=== PATIENT | male | born 1990 | race Caucasian/White ===

== ENCOUNTER 2021-11-20 12:58 | Observation (INO) ==
[2021-11-20 13:35] LABS: Basophils # (auto) 0.02 K/uL (0-0.2); Basophils % (auto) 0.3 %; Eosinophils # (auto) 0.08 K/uL (0-0.50); Eosinophils % (auto) 1.3 %; Hematocrit (blood only) 44.7 % (40.1-51.0); Hemoglobin 16.2 g/dl (14.0-18.0); Immature Granulocytes # (auto) 0.02 K/uL (0.00-0.02); Immature Granulocytes % (auto) 0.3 %; Lymphocytes # (auto) 1.84 K/uL (1.2-3.4); Lymphocytes % (auto) 30.7 %; Mean Corpuscular Hemoglobin 30.1 pg (25.0-34.0); Mean Corpuscular Hgb Conc 36.2 g/dL (32.0-36.0); Mean Corpuscular Volume 82.9 fL (80.0-100.0); Mean Platelet Volume 10.5 fL (9.4-12.4); Monocytes # (auto) 0.37 K/uL (0.24-0.82); Monocytes % (auto) 6.2 %; Neutrophils # (auto) 3.66 K/uL (1.4-6.5); Neutrophils % (auto) 61.2 %; Platelet Count 283 K/uL (130-400); RDW Coefficient of Variation 11.8 % (11.5-14.5); RDW Standard Deviation 35.6 fL (36.4-46.3); Red Blood Count 5.39 M/uL (4.63-6.08); White Blood Count 5.99 K/ul (4.8-10.8)
[2021-11-20 13:56] LABS: Albumin Globulin Ratio 1.8 (0.9-2); Albumin Level 4.6 gm/dl (3.4-5.0); BUN Creatinine Ratio 8.8 (10-20); Bilirubin,Total 0.7 mg/dl (0.2-1.0); Calcium 9.6 mg/dl (8.5-10.1); Creatinine Clr Calc Pharmacy 101.3 ml/min; Est GFR (African American) 129.7 ml/min; Est GFR (Non-African American) 111.9 ml/min; Globulin 2.5 gm/dl (2.5-4.0); Potassium 3.4 mmol/L (3.5-5.1); Total Protein 7.1 gm/dl (6.0-8.3)
[2021-11-20] MEDS ORDERED: SODIUM CHLORIDE 0.9% 1000ML 1,000 ML IV ONE (14:27)
--- NOTE | 2021-11-20 14:31 | Emergency Department Note ---
Impression & Plan Bowel disease, inflammatory, Small bowel obstruction, Abdominal pain ED Provider Note NAME: NEFTALI MARRERO AGE: 31 SEX: M : 1990 ARRIVES VIA: Walk-In INFORMANT: Patient ED PROVIDER(S): Uriel Aguilar DO CHIEF COMPLAINT: abdominal pain HPI: Patient is a 31-year-old male who presents the ER for abdominal pain. Patient notes that the pain is periumbilical and is about a 3-4 out of 10. No nausea or vomiting. Last bowel movement was around 1130. Pain started around 10 AM this morning. Denies any dysuria, urgency, or frequency. No other exacerbating or remitting factors. No fevers. No trauma. No previous abdominal surgeries. Pain feels slightly better when he lays in a ball on his left side. Patient does have a family history of inflammatory bowel disease but notes that he has never been diagnosed with this before. ROS: See above HPI for pertinent positives & negatives. A total of 10 systems reviewed and were otherwise negative. PAST MEDICAL HISTORY:See Below PAST SURGICAL HISTORY:See Below FAMILY HISTORY:See Below SOCIAL HISTORY:See Below HOME MEDICATIONS:See Below ALLERGIES:See Below VITALS:See Below PHYSICAL EXAMINATION: GENERAL: Sitting up in bed, alert, well appearing, well nourished, no distress, non-toxic EYE EXAM: normal conjunctiva. NECK: supple, no nuchal rigidity, no adenopathy, non-tender LUNGS: Clear to auscultation. Normal chest wall mechanics HEART: no murmurs, S1 normal and S2 normal ABDOMEN: abdomen soft, non-tender, normo-active bowel sounds, no masses, no rebound or guarding. UPPER EXTREMITIES: upper extremities are grossly normal. LOWER EXTREMITIES: No pitting edema. NEURO EXAM: Normal sensorium, cranial nerves II-XII grossly intact, normal speech, no gross weakness of arms, no gross weakness of legs. MEDICAL DECISION MAKING: Patient is a 31-year-old male with a family history of inflammatory bowel disease that presents the ER for abdominal pain. IV was established blood work was obtained. Labs showed no significant leukocytosis or anemia. BMP with mild hypokalemia 3.4. LFTs bilirubin and lipase was remarkable for a lipase of 130. UA was unremarkable. CT abdomen pelvis showed likely inflammatory bowel disease with strictures and a questionable small bowel obstruction. He was given IV fluids. Patient was also given IV Toradol. He was discussed with Dr. 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 Triage Nursing notes reviewed. Limited review of prior medical records performed Vital Signs: reviewed and remarkable for no significant abnormalities Differential diagnosis: Differential diagnoses includes but is not limited to gastritis, peptic ulcer disease, GERD, gallbladder disease, pancreatitis, small bowel obstruction, acute coronary syndrome, pericarditis, ischemic bowel, irritable bowel disease, irritable bowel syndrome, appendicitis, diverticulitis, malignancy, hernia, urinary tract infection, torsion, perforation, trauma, infectious. ER treatment provided: See below Diagnostics interpreted by me: ECG: none Cardiac Monitoring: An order was placed for continuous cardiac monitoring. The monitor shows a rate of 70 with sinus rhythm. Laboratory studies: As stated above and show below. Imaging studies: CT abdomen pelvis as described above Consultation(s): Discussed with Dr. Luca Cheek for further evaluation Procedures: none Critical Care: None Past Med/Surg History Social History Smoking Status: Never smoker Feels Safe at Home: Yes Allergies Allergies Allergy/AdvReac Type Severity Reaction Status Date / Time No Known Allergies Allergy Unverified 10/12/11 22:04 Results & Data (ED) Vital Signs Vital Signs - 24 hr 11/20/21 13:01 11/20/21 14:48 Temperature 36.7 C Temperature Source Temporal Artery Scan Pulse Rate 87 Pulse Rate [Left Finger] 67 Pulse Rhythm [Left Finger] Regular Pulse Strength [Left Finger] Normal Respiratory Rate 18 20 Respiratory Effort / Characteristics Non-Labored Non-Labored Spontaneous Respiratory Depth Normal Normal Respiratory Pattern Regular Regular Blood Pressure 132/88 Blood Pressure [Right Arm] 132/79 Blood Pressure Mean 102 Blood Pressure Mean [Right Arm] 96 Blood Pressure Position [Right Arm] Sitting Pulse Oximetry 100 97 Oxygen Delivery Method Room Air Room Air Sepsis Recent Fever Within 48 Hours No Sepsis New/Unexplained Change in Mental Status N/A Sepsis Action Taken by Nursing No Action Required Laboratory Data Result diagrams: 11/20/21 13:12 11/20/21 13:12 Lab Results 11/20/21 11/20/21 11/20/21 Range/Units 13:12 13:12 14:35 WBC 5.99 (4.8-10.8) K/ul RBC 5.39 (4.63-6.08) M/uL Hgb 16.2 (14.0-18.0) g/dl Hct 44.7 (40.1-51.0) % MCV 82.9 (80.0-100.0) fL MCH 30.1 (25.0-34.0) pg MCHC 36.2 H (32.0-36.0) g/dL RDW Std Deviation 35.6 L (36.4-46.3) fL RDW Coeff of Earnest 11.8 (11.5-14.5) % Plt Count 283 (130-400) K/uL MPV 10.5 (9.4-12.4) fL Immature Gran % (Auto) 0.3 % Neut % (Auto) 61.2 % Lymph % (Auto) 30.7 % [place] % (Auto) 6.2 % Eos % (Auto) 1.3 % Baso % (Auto) 0.3 % Neut # (Auto) 3.66 (1.4-6.5) K/uL Lymph # (Auto) 1.84 (1.2-3.4) K/uL [place] # (Auto) 0.37 (0.24-0.82) K/uL Eos # (Auto) 0.08 (0-0.50) K/uL Baso # (Auto) 0.02 (0-0.2) K/uL Immature Gran # (Auto) 0.02 (0.00-0.02) K/uL Sodium 139 (136-145) mmol/L Potassium 3.4 L (3.5-5.1) mmol/L Chloride 103 (98-107) mmol/L Carbon Dioxide 27 (21-32) mmol/L Anion Gap 9 (3-11) BUN 8 (6-23) mg/dl Creatinine 0.91 (0.6-1.4) mg/dl Est Cr Clr Drug Dosing 101.3 ml/min Est GFR ( Amer) 129.7 ml/min Est GFR (Non-Af Amer) 111.9 ml/min BUN/Creatinine Ratio 8.8 L (10-20) Glucose 96 (70-99(Fasting)) mg/dl Calcium 9.6 (8.5-10.1) mg/dl Total Bilirubin 0.7 (0.2-1.0) mg/dl AST 17 (13-39) U/L ALT 21 (7-52) U/L Alkaline Phosphatase 48 (34-104) U/L Total Protein 7.1 (6.0-8.3) gm/dl Albumin 4.6 (3.4-5.0) gm/dl Globulin 2.5 (2.5-4.0) gm/dl Albumin/Globulin Ratio 1.8 (0.9-2) Lipase 132 H (11-82) U/L Urine Color Yellow Urine Appearance Clear (Clear) Urine pH 7.5 (4.5-7.5) Ur Specific [place] 1.017 (1.000-1.030) Urine Protein Negative (Negative) Urine Glucose (UA) Negative (Negative) Urine Ketones 1+ H (Negative) Urine Blood Negative (Negative) Urine Nitrite Negative (Negative) Urine Bilirubin Negative (Negative) Urine Urobilinogen Negative (Negative) Ur Leukocyte Esterase Negative (Negative) Administered Medications Discontinued Medications Sodium Chloride (Nss 1000ml) 1,000 mls @ 999 mls/hr IV .Q1H1M ONE Stop: 11/20/21 15:27 Last Infusion: 11/20/21 15:34 Dose: 0 mls/hr Documented By: Admin: 11/20/21 14:32 Dose: 999 mls/hr Documented By: LULA Ioversol (Ioversol 350 Mg 100ml Prefilled Syringe) 91 ml IV ONCE ONE Stop: 11/20/21 15:05 Last Admin: 11/20/21 15:05 Dose: 91 ml Documented By: CATHERINE Ketorolac Tromethamine (Ketorolac Tromethamine 15 Mg/Ml Vial) 15 mg IV NOW ONE Stop: 11/20/21 14:39 Last Admin: 11/20/21 14:47 Dose: 15 mg Documented By: BAILEE Imaging Data Radiologist's Impression: Abdomen/Pelvis CT 11/20/21 14:[address] WITH IV CONTRAST CT DOSE: 261.19 mGy.cm HISTORY: Generalized abdominal pain. TECHNIQUE: Multiaxial CT images of the abdomen and pelvis were performed following the use of intravenous contrast. A dose lowering technique was utilized adhering to the principles of ALARA. COMPARISON STUDY: None. FINDINGS: The lung bases are clear. No pneumoperitoneum. No pneumatosis. No fractures within the visualized osseous structures. The liver, spleen, adrenal glands, pancreas, and kidneys are unremarkable. No retroperitoneal lymphadenopathy. Normal caliber abdominal aorta. The main portal vein is patent. No pelvic free fluid. The bladder is not well-distended but appears unremarkable. The visualized appendix is unremarkable. The tip is partially obscured. Mild thickening at the distal 15 cm of the terminal ileum with areas of mild dilatation measuring up to 2.9 cm and 2 separate strictures. The focal narrowing/stricture at the distal terminal ileum near the ileocecal valve is best seen on image 226. Therefore, this could represent a partial distal small bowel obstruction secondary to a nonspecific terminal ileitis. This may repr esent an inflammatory bowel disease or infectious process. Questionable thickening at the body of stomach may be due to underdistention. IMPRESSION: 1. Mild thickening at the terminal ileum with areas of both mild dilatation and strictures as described above. Therefore, this could represent a partial distal small bowel obstruction secondary to a nonspecific terminal ileitis. This may represent an inflammatory bowel disease or infectious process. 2. Questionable thickening at the body of stomach may be due to underdistention. 3. The visualized appendix is unremarkable. ACT 112: Negative or not required by law. Electronically signed by: Gordy Roberson M.D. 11/20/2021 3:43 PM Discharge Plan Visit Data Chief Complaint: Abdominal Pain Stated Complaint: SHARP PAIN IN ABDOMINAL ED Provider: Uriel Aguilar Discharge Problem: Bowel disease, inflammatory, Small bowel obstruction, Abdominal pain Forms Stand Alone Forms: [facility] Referrals [facility]: [facility] [Non-Staff] -
[2021-11-20] MEDS ORDERED: KETOROLAC TROMETHAMINE 15 MG/ML VIAL IV ONE (14:38)
[2021-11-20 14:50] LABS: Appearance Urine Clear (Clear); Bilirubin Urine Negative (Negative); Blood Urine Negative (Negative); Color Urine Yellow; Glucose Urine UA Negative (Negative); Ketones Urine 1+ (Negative); Leukocyte Esterase Urine Negative (Negative); Nitrite Urine Negative (Negative); Protein Urine Negative (Negative); Specific Gravity Urine 1.017 (1.000-1.030); Urobilinogen Urine Negative (Negative); pH Urine 7.5 (4.5-7.5)
[2021-11-20] MEDS ORDERED: IOVERSOL 350 MG 100mL Prefilled Syringe IV ONE (15:04)
--- NOTE | 2021-11-20 15:45 | CT Scan Report ---
ABDOMEN AND PELVIS CT WITH IV CONTRAST CT DOSE: 261.19 mGy.cm HISTORY: Generalized abdominal pain. TECHNIQUE: Multiaxial CT images of the abdomen and pelvis were performed following the use of intrave nous contrast. A dose lowering technique was utilized adhering to the principles of ALARA. COMPARISON STUDY: None. FINDINGS: The lung bases are clear. No pneumoperitoneum. No pneumatosis. No fractures within the visu alized osseous structures. The liver, spleen, adrenal glands, pancreas, and kidneys are unremarkable. No retroperitoneal lymphadenopathy. Normal caliber abdominal aorta. The main portal vein is patent. No pelvic free fluid. The bladder is not well-distended but appears unremarkable. The visualized appe ndix is unremarkable. The tip is partially obscured. Mild thickening at the distal 15 cm of the termi nal ileum with areas of mild dilatation measuring up to 2.9 cm and 2 separate strictures. The focal n arrowing/stricture at the distal terminal ileum near the ileocecal valve is best seen on image 226. T herefore, this could represent a partial distal small bowel obstruction secondary to a nonspecific te rminal ileitis. This may represent an inflammatory bowel disease or infectious process. Questionable thickening at the body of stomach may be due to underdistention. IMPRESSION: 1. Mild thickening at the terminal ileum with areas of both mild dilatation and strictures as descri bed above. Therefore, this could represent a partial distal small bowel obstruction secondary to a no nspecific terminal ileitis. This may represent an inflammatory bowel disease or infectious process. 2. Questionable thickening at the body of stomach may be due to underdistention. 3. The visualized appendix is unremarkable. ACT 112: Negative or not required by law. Electronically signed by: Gordy Roberson M.D. 11/20/2021 3:43 PM
--- NOTE | 2021-11-20 16:50 | History & Physical Report ---
Date of Service November 20, 2021 Assessment & Plan (1) Bowel disease, inflammatory: Plan: - Patient with acute onset of 3/4-10 periumbilical pain this morning worsened with food, now resolved. - CT A/P: Mild thickening at the terminal ileum with areas of both mild dil atation and strictures as described above. Therefore, this could represent a partial distal small bowel obstruction secondary to a nonspecific terminal ileitis. This may represent an inflammatory bowel disease or infectious process. - Will consult GI and consider starting steroids this evening per their recommendations. Otherwise, will have patient n.p.o., on mIVF, pain control with IV Toradol or IV morphine in severity. - Lipase minimally elevated at 132, will repeat on AM labs. (2) Small bowel obstruction: Plan: - CT of the abdomen and pelvis shows inflammation of the terminal ileum with mild dilatation and strictures which may possibly represent distal SBO, however patient has had 2 normal BMs today, without nausea or vomiting. - Can get a KUB tomorrow and consider general surgery consult at that time for new findings/progression or if patient's condition worsens - For now we will keep patient n.p.o. Plan - Admit to [facility]. - SCDs for VTE ppx. - Full Code. History of Present Illness Primary Care Provider: NO PCP Logan Haeys is a previous healthy 31-year-old male is presenting today as a previously healthy 31-year-old male who presented thia afternoon with abdominal pain. 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 He ate a spicy meal from [employer] and notes this significantly worsened his pain. Pain is in the central/upper abdomen and does not radiate anywhere, is worse with movement and better with lying still. Has not been nauseous or vomiting with the pain, and has had 2 bowel movements which were normal for him, nonbloody and nonpainful. He has not had any fever or chills. No one else at home is feeling sick. He denies tobacco, alcohol, or drug use. No new medications or supplements been started and he is not taking any medications. No recent trauma to the abdomen and no history of abdominal surgeries. He drinks socially, maybe 1 or 2 times a month but has not had any alcohol in the past week or so. He denies a personal history of GI issues, but does have a brother who was diagnosed with colitis in the past 10 years and he believes his father has had pancreatitis, but denies any other family history of GI disorders or diseases. Since receiving medication in our ED, his pain has resolved. Upon presentation his VS are wnl and stable. Labs largely unremarkable, his potassium is just slightly low at 3.4, lipase is 132. CT of the abdomen/pelvis shows mild thickening of the terminal ileum with areas of both dilatation st rictures possibly representing partial distal SBO secondary to nonspecific terminal ileitis or possible IBD. Allergies Allergy/AdvReac Type Severity Reaction Status Date / Time No Known Allergies Allergy Unverified 11/20/21 17:26 Home Medications Medication Instructions Recorded Confirmed Type No Known Home Medications 11/20/21 11/20/21 History Past Med/Surg History Medical History (Updated 11/20/21 @ 17:56 by Katie Oviedo PA-C) No significant past medical history Surgical History (Updated 11/20/21 @ 17:56 by Katie Oviedo PA-C) No significant past surgical history Family History (Updated 11/20/21 @ 17:58 by Katie Oviedo PA-C) Brother Ulcerative colitis Father Pancreatitis Denies family history of Colorectal cancer Social History Smoking Status: Never smoker Feels Safe at Home: Yes Review of Systems Review of Systems: Constitutional: No fever/chills, weakness, fatigue, myalgias, anorexia, night sweats Eyes: No diplopia, no worsening or blurred vision ENT: normal hearing, no trouble swallowing Respiratory: No cough, sputum, dyspnea at rest or on exertion Cardiovascular: No chest pain, tightness or palpitations Abdomen: central abdominal pain this am on empty stomach worsened with food; no nausea, vomiting, diarrhea, constipation, hematochezia, or melena : Denies dysuria, hematuria, increased urgency/frequency, urinary retention Musculoskeletal: No joint pain, calf pain, swelling Neurologic: No weakness, numbness/tingling, or balance problems Psychiatric: No anxiety or depression Skin: No rash or itch Physical Exam Physical Exam: General: awake, alert, no apparent distress Head: Normocephalic, atraumatic ENT: PERRL, EOMI, no pharyngeal exudate, mucous membranes moist Chest: Clear to auscultation, on room air, no adventitious breath sounds Cardiac: Regular rate and rhythm, no murmur, no JVD, normal peripheral pulses, good capillary refill Abdominal: NABS x 4 quadrants, soft, nontender to palpation, no rebound, guarding or tenderness Extremities: Normal inspection, no peripheral edema or erythema, calfs nontender to palpation Psych: Normal mood and affect Neuro: AAO x 3, strength intact bilaterally and rated 5/5, no motor deficits, speech is clear, no peripheral sensory deficits Skin: no rash or erythema Results & Data Results & Data ([facility]) Vital Signs (Past 12 Hours) Vital Signs Temp Pulse Pulse Resp BP BP Pulse Ox 11/20/21 14:48 67 20 132/79 97 11/20/21 13:01 36.7 C 87 18 132/88 100 O2 Del Method 11/20/21 14:48 Room Air 11/20/21 13:01 Room Air Laboratory Results Abnormal lab results 11/20/21 11/20/21 11/20/21 Range/Units 13:12 13:12 14:35 MCHC 36.2 H (32.0-36.0) g/dL RDW Std Deviation 35.6 L (36.4-46.3) fL Potassium 3.4 L (3.5-5.1) mmol/L BUN/Creatinine Ratio 8.8 L (10-20) Lipase 132 H (11-82) U/L Urine Ketones 1+ H (Negative) Diagnostic Findings Abdomen/Pelvis CT 11/20/21 14:[address] WITH IV CONTRAST CT DOSE: 261.19 mGy.cm HISTORY: Generalized abdominal pain. TECHNIQUE: Multiaxial CT images of the abdomen and pelvis were performed following the use of intravenous contrast. A dose lowering technique was utilized adhering to the principles of ALARA. COMPARISON STUDY: None. FINDINGS: The lung bases are clear. No pneumoperitoneum. No pneumatosis. No fractures within the visualized osseous structures. The liver, spleen, adrenal glands, pancreas, and kidneys are unremarkable. No retroperitoneal lymphadenopathy. Normal caliber abdominal aorta. The main portal vein is patent. No pelvic free fluid. The bladder is not well-distended but appears unremarkable. The visualized appendix is unremarkable. The tip is partially obscured. Mild thickening at the distal 15 cm of the terminal ileum with areas of mild dilatation measuring up to 2.9 cm and 2 separate strictures. The focal narrowing/stricture at the distal terminal ileum near the ileocecal valve is best seen on image 226. Therefore, this could represent a partial distal small bowel obstruction secondary to a nonspecific terminal ileitis. This may represent an inflammatory bowel disease or infectious process. Questionable thickening at the body of stomach may be due to underdistention. IMPRESSION: 1. Mild thickening at the terminal ileum with areas of both mild dilatation and strictures as described above. Therefore, this could represent a partial distal small bowel obstruction secondary to a nonspecific terminal ileitis. This may represent an inflammatory bowel disease or infectious process. 2. Questionable thickening at the body of stomach may be due to underdistention. 3. The visualized appendix is unremarkable. ACT 112: Negative or not required by law. Electronically signed by: Gordy Roberson M.D. 11/20/2021 3:43 PM Code Status & VTE Plan Code Status Full Code. Supervising Physician Co-Signing Physician Notes Patient was seen and examined independently I discussed the case with Katie Oviedo PAC I reviewed pertinent past medical social family history and also the plan of care and agree with the plan of care. Patient presented with abdominal pain which is unusual for him as periumbilical patient has been having bowel moods at home which have not been bloody or diarrhea filled. CT scan his abdomen showed concerns for strictures which could be inflammatory. Also, in partial small bowel obstruction. The patient will be brought to the hospital continue to be hydrated as symptomatic pain relief discussion with gastroenterology about whether we should initiate steroid therapy for possible Crohn's disease and likely outpatient follow-up for further diagnostic evaluation His abdomen was examined and he had NABS he was mildly uncomfortable but was not rigid or guarded. Any exceptions will be noted below PG Care Time/CCT Total # of Minutes Spent Total Time Spent with Patient: Total time spent is greater than 50% in coordination of care (as documented) at patient's floor/unit and/or counseling patient: Coding Level of Care Code 45121 Initial Inpt Care Lvl 3 Diagnoses Bowel disease, inflammatory K52.9 Small bowel obstruction K56.609
[2021-11-20] MEDS ORDERED: POLYETHYLENE (MIRALAX) 17 GM PACK PO PRN (20:46)
[2021-11-20] MEDS ORDERED: KETOROLAC TROMETHAMINE 15 MG/ML VIAL IV PRN (20:46)
[2021-11-20] MEDS ORDERED: ONDANSETRON INJ 2 MG/ML 2 ML VIAL IV PRN (20:46)
[2021-11-20] MEDS ORDERED: MoRPHine SULFATE 4 MG/ML 1 ML CARP\\VIAL IV PRN (20:46)
[2021-11-20] MEDS ORDERED: MoRPHine SULFATE 2 MG/ML CARP IV PRN (20:46)
[2021-11-20] MEDS: LACTATED RINGER'S 1,000 ML IV SCH (21:45)
[2021-11-20] MEDS: POTASSIUM CHLORIDE / WTR 10 MEQ/100 ML PLCT IV SCH ×2 (21:49→22:43)
[2021-11-20] MEDS ORDERED: FLUARIX QUADRIVALENT 0.5 ML SYR IM ONE (22:06)
[2021-11-21] MEDS: LACTATED RINGER'S 1,000 ML IV SCH ×3 (05:29→20:46)
[2021-11-21 07:11] LABS: Basophils # (auto) 0.02 K/uL (0-0.2); Basophils % (auto) 0.4 %; Eosinophils # (auto) 0.16 K/uL (0-0.50); Hematocrit (blood only) 41.6 % (40.1-51.0); Hemoglobin 14.6 g/dl (14.0-18.0); Immature Granulocytes # (auto) 0.01 K/uL (0.00-0.02); Immature Granulocytes % (auto) 0.2 %; Lymphocytes # (auto) 2.01 K/uL (1.2-3.4); Lymphocytes % (auto) 37.4 %; Mean Corpuscular Hemoglobin 30.1 pg (25.0-34.0); Mean Corpuscular Hgb Conc 35.1 g/dL (32.0-36.0); Mean Corpuscular Volume 85.8 fL (80.0-100.0); Mean Platelet Volume 10.2 fL (9.4-12.4); Monocytes # (auto) 0.33 K/uL (0.24-0.82); Monocytes % (auto) 6.1 %; Neutrophils # (auto) 2.85 K/uL (1.4-6.5); Neutrophils % (auto) 52.9 %; Platelet Count 232 K/uL (130-400); RDW Coefficient of Variation 11.8 % (11.5-14.5); RDW Standard Deviation 36.8 fL (36.4-46.3); Red Blood Count 4.85 M/uL (4.63-6.08); White Blood Count 5.38 K/ul (4.8-10.8)
[2021-11-21 07:34] LABS: BUN Creatinine Ratio 9.9 (10-20); Calcium 8.6 mg/dl (8.5-10.1); Creatinine Clr Calc Pharmacy 130.7 ml/min; Est GFR (African American) 144.9 ml/min
--- NOTE | 2021-11-21 08:07 | Hospitalist Progress Note ---
Date of Service November 21, 2021 Assessment & Plan (1) Bowel disease, inflammatory: Plan: Suspected possible underlying cause, acute onset of pain following Panda express prior to admit as he thought mariza ricks was hunger pains Brother with colitis, no prior known personal hx IBD CTAP on admit with mild thickening at terminal ileum w/ areas of mild dilatation and strictures. Could represent partial distal SBO secondary to nonspec terminal ileitis. May rep inflammatory bowel disease or infectious process Of note, does show some questionable thickening at body of stomach, may be due to underdistention WBC wnl on admit, no fevers (did report URI symptoms last week however). No abx for now Supportive care for now --> IVF/pain control/antiemetics prn Toradol x 1 NO further pain, +BM overnight KUB with improvement, patient with BS throughout on exam Checking biofire stool Lipase minimal elevation 132--> 227 on repeat. Unclear cause . LFTs wnl. No epigastric tenderness GI consulted -- discussed with them given KUB and no pain, ok for clears today and will make NPO after MN for endoscopy. Did ?if able to do EGD at same time if needed (2) Small bowel obstruction: Plan: CT of the abdomen and pelvis shows inflammation of the terminal ileum with mild dilatation and strictures which may possibly represent distal SBO, however patient has had 2 normal BMs today, without nausea or vomiting. KUB this morning with decreased SBO distention, no pneumo. Mild-moderate fecal retenion and patient reported after BM earlier he does feel like he could have another shortly. above, per GI ok for some clears today, continue IVF- Did discuss with patient to alert/stop if any abd pain Bowel prep ordered as above, NPO at KS for endoscopy If condition worsened at all, consider GS consult Plan continued inpatient stay, changed to full admit per discussion with CM meeting criteria clear liquids for now, bowel prep NPO at midnight for endoscopy will need outpatient GI f/u pending endoscopy findings Admission and Anticipated Discharge Date Admission Date: November 20, 2021 Subjective Eval this morning No further pain BM overnight, KUB with some improvement No alternating constipation/diarrhea, weight loss, night sweats. Bowel habit pending what he eats, yesterday was spicy panda express Brother with dx colitis, thinks take prn meds when flare Slight headache this morning but states believes from not having caffeine. Stated seen by female from GI this morning, possible consideration for endoscopy tomorrow but given no abd pain currently will reach out to GI. Discussed given +BS on exam/improvement could consider clear liquids and make NPO after midnight. Checking biofire given other infectious sx week prior -- did endorse some UTI week prior, not covid. But did endorse had been taking more OTC medications in the past two weeks including pseudophed, mucinex, and nyquil. Regarding NSAIDs, might take a couple times a month as needed pending what for but nothing on a consistent basis. Denies any reflux or nausea/vomiting. Only symptom was pain, which has resolved with IVF and dose of toradol on admit. Planning for clear liquid for today, NPO after midnight. Review of Systems Review of Systems: All systems reviewed & are unremarkable except as noted in HPI & below Physical Exam Physical Exam: General: WD/WN fit male sitting in bed, NAD HEENT; head normocephalic, atraumatic, mmm, trachea midline without deviation Resp: CTAB, on room air CV: RRR, no m/r/g, no pitting edema/calf tenderness GI: +BS throughout, possible slightly hypoactive RLQ, NONTENDER TO PALPATION, no epigastric tenderness, no rebound/guarding no larios MSK/Neuro: moves all extremities, no facial droop, speech clear, no focal deficit Psych: AOx3, pleasant and cooperative Skin: warm, dry Results & Data Results & Data ([facility]) Vital Signs (Past 12 Hours) Vital Signs Temp Pulse Resp BP Pulse Ox O2 Del Method 11/21/21 07:24 36.8 C 70 16 115/70 97 11/20/21 20:50 36.5 C 76 16 127/83 100 Room Air Laboratory Results 11/21/21 11/21/21 11/20/21 Range/Units 06:58 06:58 18:22 WBC 5.38 (4.8-10.8) K/ul RBC 4.85 (4.63-6.08) M/uL Hgb 14.6 (14.0-18.0) g/dl Hct 41.6 (40.1-51.0) % MCV 85.8 (80.0-100.0) fL MCH 30.1 (25.0-34.0) pg MCHC 35.1 (32.0-36.0) g/dL RDW Std Deviation 36.8 (36.4-46.3) fL RDW Coeff of Earnest 11.8 (11.5-14.5) % Plt Count 232 (130-400) K/uL MPV 10.2 (9.4-12.4) fL Immature Gran % (Auto) 0.2 % Neut % (Auto) 52.9 % Lymph % (Auto) 37.4 % [place] % (Auto) 6.1 % Eos % (Auto) 3.0 % Baso % (Auto) 0.4 % Neut # (Auto) 2.85 (1.4-6.5) K/uL Lymph # (Auto) 2.01 (1.2-3.4) K/uL [place] # (Auto) 0.33 (0.24-0.82) K/uL Eos # (Auto) 0.16 (0-0.50) K/uL Baso # (Auto) 0.02 (0-0.2) K/uL Immature Gran # (Auto) 0.01 (0.00-0.02) K/uL Sodium 141 (136-145) mmol/L Potassium 4.0 (3.5-5.1) mmol/L Chloride 112 H (98-107) mmol/L Carbon Dioxide 24 (21-32) mmol/L Anion Gap 5 (3-11) BUN 7 (6-23) mg/dl Creatinine 0.71 (0.6-1.4) mg/dl Est Cr Clr Drug Dosing 130.7 ml/min Est GFR ( Amer) 144.9 ml/min Est GFR (Non-Af Amer) 125.0 ml/min BUN/Creatinine Ratio 9.9 L (10-20) Glucose 93 (70-99(Fasting)) mg/dl Calcium 8.6 (8.5-10.1) mg/dl Total Bilirubin (0.2-1.0) mg/dl AST (13-39) U/L ALT (7-52) U/L Alkaline Phosphatase (34-104) U/L Total Protein (6.0-8.3) gm/dl Albumin (3.4-5.0) gm/dl Globulin (2.5-4.0) gm/dl Albumin/Globulin Ratio (0.9-2) Lipase 227 H (11-82) U/L Urine Color Urine Appearance (Clear) Urine pH (4.5-7.5) Ur Specific Morgan (1.000-1.030) Urine Protein (Negative) Urine Glucose (UA) (Negative) Urine Ketones (Negative) Urine Blood (Negative) Urine Nitrite (Negative) Urine Bilirubin (Negative) Urine Urobilinogen (Negative) Ur Leukocyte Esterase (Negative) SARS-CoV-2, RNA, NAAT NEGATIVE (NEGATIVE) 11/20/21 11/20/21 11/20/21 Range/Units 14:35 13:12 13:12 WBC 5.99 (4.8-10.8) K/ul RBC 5.39 (4.63-6.08) M/uL Hgb 16.2 (14.0-18.0) g/dl Hct 44.7 (40.1-51.0) % MCV 82.9 (80.0-100.0) fL MCH 30.1 (25.0-34.0) pg MCHC 36.2 H (32.0-36.0) g/dL RDW Std Deviation 35.6 L (36.4-46.3) fL RDW Coeff of Earnest 11.8 (11.5-14.5) % Plt Count 283 (130-400) K/uL MPV 10.5 (9.4-12.4) fL Immature Gran % (Auto) 0.3 % Neut % (Auto) 61.2 % Lymph % (Auto) 30.7 % [place] % (Auto) 6.2 % Eos % (Auto) 1.3 % Baso % (Auto) 0.3 % Neut # (Auto) 3.66 (1.4-6.5) K/uL Lymph # (Auto) 1.84 (1.2-3.4) K/uL [place] # (Auto) 0.37 (0.24-0.82) K/uL Eos # (Auto) 0.08 (0-0.50) K/uL Baso # (Auto) 0.02 (0-0.2) K/uL Immature Gran # (Auto) 0.02 (0.00-0.02) K/uL Sodium 139 (136-145) mmol/L Potassium 3.4 L (3.5-5.1) mmol/L Chloride 103 (98-107) mmol/L Carbon Dioxide 27 (21-32) mmol/L Anion Gap 9 (3-11) BUN 8 (6-23) mg/dl Creatinine 0.91 (0.6-1.4) mg/dl Est Cr Clr Drug Dosing 101.3 ml/min Est GFR ( Amer) 129.7 ml/min Est GFR (Non-Af Amer) 111.9 ml/min BUN/Creatinine Ratio 8.8 L (10-20) Glucose 96 (70-99(Fasting)) mg/dl Calcium 9.6 (8.5-10.1) mg/dl Total Bilirubin 0.7 (0.2-1.0) mg/dl AST 17 (13-39) U/L ALT 21 (7-52) U/L Alkaline Phosphatase 48 (34-104) U/L Total Protein 7.1 (6.0-8.3) gm/dl Albumin 4.6 (3.4-5.0) gm/dl Globulin 2.5 (2.5-4.0) gm/dl Albumin/Globulin Ratio 1.8 (0.9-2) Lipase 132 H (11-82) U/L Urine Color Yellow Urine Appearance Clear (Clear) Urine pH 7.5 (4.5-7.5) Ur Specific Morgan 1.017 (1.000-1.030) Urine Protein Negative (Negative) Urine Glucose (UA) Negative (Negative) Urine Ketones 1+ H (Negative) Urine Blood Negative (Negative) Urine Nitrite Negative (Negative) Urine Bilirubin Negative (Negative) Urine Urobilinogen Negative (Negative) Ur Leukocyte Esterase Negative (Negative) SARS-CoV-2, RNA, NAAT (NEGATIVE) Diagnostic Findings Abdomen/Pelvis CT 11/20/21 14:[address] WITH IV CONTRAST CT DOSE: 261.19 mGy.cm HISTORY: Generalized abdominal pain. TECHNIQUE: Multiaxial CT images of the abdomen and pelvis were performed following the use of intravenous contrast. A dose lowering technique was utilized adhering to the principles of ALARA. COMPARISON STUDY: None. FINDINGS: The lung bases are clear. No pneumoperitoneum. No pneumatosis. No fractures within the visualized osseous structures. The liver, spleen, adrenal glands, pancreas, and kidneys are unremarkable. No retroperitoneal lymphadenopathy. Normal caliber abdominal aorta. The main portal vein is patent. No pelvic free fluid. The bladder is not well-distended but appears unremarkable. The visualized appendix is unremarkable. The tip is partially obscured. Mild thickening at the distal 15 cm of the terminal ileum with areas of mild dilatation measuring up to 2.9 cm and 2 separate strictures. The focal narrowing/stricture at the distal terminal ileum near the ileocecal valve is best seen on image 226. Therefore, this could represent a partial distal small bowel obstruction secondary to a nonspecific terminal ileitis. This may represent an inflammatory bowel disease or infectious process. Questionable thickening at the body of stomach may be due to underdistention. IMPRESSION: 1. Mild thickening at the terminal ileum with areas of both mild dilatation and strictures as described above. Therefore, this could represent a partial distal small bowel obstruction secondary to a nonspecific terminal ileitis. This may represent an inflammatory bowel disease or infectious process. 2. Questionable thickening at the body of stomach may be due to underdistention. 3. The visualized appendix is unremarkable. ACT 112: Negative or not required by law. Electronically signed by: Gordy Roberson M.D. 11/20/2021 3:43 PM PG Care Time/CCT Total # of Minutes Spent Total Time Spent with Patient: Total time spent is greater than 50% in coordination of care (as documented) at patient's floor/unit and/or counseling patient: Coding Level of Care Code 68684 Subseq Hosp Care Lvl 3 Diagnoses Bowel disease, inflammatory K52.9 Small bowel obstruction K56.609
--- NOTE | 2021-11-21 09:37 | XRay Report ---
KUB HISTORY: Acute generalized abdominal pain monitor for SBO progression COMPARISON: CT abdomen and pelvis 11/20/2021 FINDINGS: No significant small or large bowel distention identified by radiography. There is decrease d small bowel distention compared to yesterday's exam. Mild to moderate fecal retention. No renal ca lculi. No ureteral calculi. No pneumoperitoneum or pneumatosis. No fracture. IMPRESSION: 1. Decreased small bowel distention compared to yesterday's exam. 2. No pneumoperitoneum. ACT 112: Negative or not required by law. The above report was generated using voice recognition software. It may contain grammatical, syntax o r spelling errors. Electronically signed by: Carlos Rios M.D. 11/21/2021 9:36 AM
[2021-11-21] MEDS: FAMOTIDINE 20 MG in SYRINGE 3 ML IV SCH ×2 (09:40→20:40)
--- NOTE | 2021-11-21 10:47 | Gastrointestinal Consultation ---
Date of Consultation November 21, 2021 Assessment & Plan (1) Abnormal computed tomography of cecum and terminal ileum: -Biofire stool study today -Obtain CRP -Clear liquids today -Plan to prep tonight for colonoscopy on 11/22/21 Supervising Physician Co-Signing Physician Notes Agree with PEDRO Martinez as above Gen: Awake, Cooperative, NAD Chest: CTA B/L, -W/R/R CVS: RRR Abd: Soft, NT, ND, +BS, -HSM Ext: -C/C/E Continue current therapy and supportive care Clear liquid diet Bowel prep tonight, then NPO Colonoscopy on 11/22/2021 History of Present Illness Reason for Consultation: ileitis, possible IBD Attending Physician: Cuba Almanza MD History of Present Illness Patient is a 31 yo male without past medical history who presented to [facility] due to abdominal pain. He notes that he had an abrupt onset of abdominal pain yesterday. He ate lunch thinking it was just hunger pain and he notes that food worsened the pain significantly. He described his pain as sharp stabbing midabdominal pain that was worsened with moving around. He denied nausea or vomiting. He notes he has been moving his bowels normally. He denies sick contacts, NSAIDs, alcohol, or dug use. He denies recent changes to his medications. He denies abdominal surgery in the past. He notes a brother with Ulcerative Colitis. In the ED, his CMP was largely unremarkable. CT of the abdomen/pelvis indicated thickening of the terminal ileum with concern for stricture and possible PSBO. He notes he has continued to move his bowels throughout his hospitalization. No CRP available. At present, he notes that his abdominal pain has improved. He is moving his bowels (solid, non-bloody). He denies acute issues otherwise. Allergies Allergy/AdvReac Type Severity Reaction Status Date / Time No Known Allergies Allergy Unverified 11/20/21 17:26 Home Medications Medication Instructions Recorded Confirmed Type No Known Home Medications 11/20/21 11/20/21 History Patient History Medical History No significant past medical history Surgical History No significant past surgical history Family History Brother Ulcerative colitis Father Pancreatitis Denies family history of Colorectal cancer Social History Smoking Status: Never smoker Hx Alcohol Use: Yes Hx Substance Use: No Preferred Language: Tunisian Communication Ability: Effective Certified Vehicle Fire Investigator Required: No Beliefs That Will Affect Care: None Current Living Situation: Spouse Feels Safe at Home: Yes Assistive Devices: None Review of Systems Constitutional: no fever and no chills Respiratory: no cough and no dyspnea Cardiovascular: no chest pain Gastrointestinal: + abdominal pain (resolved); no diarrhea/loose stools and no blood in stools Musculoskeletal: no problem reported Psychiatric: no problem reported Physical Exam Constitutional: well developed Respiratory: normal respiratory effort Cardiovascular: Rate/Rhythm: regular rate Gastrointestinal (Abdomen): normal bowel sounds, soft, nontender, no hepatosplenomegaly Musculoskeletal: Head/Neck/Chest: normocephalic Psychiatric: Orientation: alert and oriented x 3 Results & Data ([facility]) Vital Signs (Past 12 Hours) Vital Signs Temp Pulse Resp BP Pulse Ox 11/21/21 07:24 36.8 C 70 16 115/70 97 PG Care Time/CCT Total # of Minutes Spent Total Time Spent with Patient: Total time spent is greater than 50% in coordination of care (as documented) at patient's floor/unit and/or counseling patient: Coding Level of Care Code 35020 Inpt Consult Level 4 Diagnoses Abnormal computed tomography of cecum and terminal ileum R93.3
[2021-11-21] MEDS ORDERED: ACETAMINOPHEN 500 MG TAB PO PRN (13:04)
[2021-11-21] MEDS ORDERED: bisacodyL 5 MG TABEC PO ONE (18:00)
[2021-11-21] MEDS ORDERED: POLYETHYLENE (MIRALAX) 17 GM PACK PO ONE (18:00)
[2021-11-21 18:56] LABS: Adenovirus F 40/41 PCR Not Detected (NotDetected); Astrovirus PCR Not Detected (NotDetected); Campylobacter PCR Not Detected (NotDetected); Clostridium diff Toxin A/B PCR Not Detected (NotDetected); Cryptosporidium PCR Not Detected (NotDetected); Cyclospora cayetanensis PCR Not Detected (NotDetected); Entamoeba histolytica PCR Not Detected (NotDetected); Enteroaggregative E.coli(EAEC) Not Detected (NotDetected); Enteropathogenic E.coli (EPEC) Not Detected (NotDetected); Enterotoxigenic E.coli (ETEC) Not Detected (NotDetected); Giardia lamblia PCR Not Detected (NotDetected); Norovirus GI/GII PCR Not Detected (NotDetected); Plesiomonas shigelloides PCR Not Detected (NotDetected); Rotavirus A PCR Not Detected (NotDetected); Salmonella PCR Not Detected (NotDetected); Sapovirus PCR Not Detected (NotDetected); Shiga-like Toxin E.coli (STEC) Not Detected (NotDetected); Shigella/Enteroinvasive E.coli Not Detected (NotDetected); Vibrio cholerae PCR Not Detected (NotDetected); Vibrio species PCR Not Detected (NotDetected); Yersinia enterocolitica PCR Not Detected (NotDetected)
[2021-11-22] MEDS ORDERED: POLYETHYLENE (MIRALAX) 17 GM PACK PO ONE (03:00)
[2021-11-22 06:45] LABS: Hematocrit (blood only) 42.2 % (40.1-51.0); Hemoglobin 14.9 g/dl (14.0-18.0); Mean Corpuscular Hemoglobin 29.8 pg (25.0-34.0); Mean Corpuscular Hgb Conc 35.3 g/dL (32.0-36.0); Mean Corpuscular Volume 84.4 fL (80.0-100.0); Mean Platelet Volume 10.4 fL (9.4-12.4); Platelet Count 265 K/uL (130-400); RDW Coefficient of Variation 11.7 % (11.5-14.5); RDW Standard Deviation 35.7 fL (36.4-46.3); White Blood Count 6.72 K/ul (4.8-10.8)
[2021-11-22 07:44] LABS: Calcium 9.2 mg/dl (8.5-10.1); Creatinine Clr Calc Pharmacy 99.8 ml/min; Est GFR (African American) 126.3 ml/min; Magnesium 1.9 mg/dl (1.7-2.4); Potassium 3.3 mmol/L (3.5-5.1)
[2021-11-22] MEDS: LACTATED RINGER'S 1,000 ML IV SCH (08:18)
[2021-11-22] MEDS: FAMOTIDINE 20 MG in SYRINGE 3 ML IV SCH (08:18)
[2021-11-22 08:26] LABS: BUN Creatinine Ratio 5.4 (10-20)
--- NOTE | 2021-11-22 09:27 | History & Physical Bridge Note ---
Date of Service November 22, 2021 History & Physical Bridge Note I have examined the patient, reviewed the History & Physical and in the interval since the performance of the History & Physical I have noted the following changes of clinical significance: no changes noted. Patient has completed his bowel preparation. He is NPO. Keep NPO & proceed with EGD for evaluation of CT findings of the stomach as well as colonoscopy to investigate ileal abnormalities noted on imaging. Agree with PEDRO Martinez as above Abd: Soft, NT, ND, +BS Continue current therapy Proceed with EGD and colonoscopy now
--- NOTE | 2021-11-22 11:13 | Anesthesiology Consultation ---
Date of Service November 22, 2021 Assessment & Plan (1) Encounter for pre-operative examination: Chart Review Chart Review: Acceptable Risk for Surgery, Patient NOT seen in Pre Admission Testing and public affairs manager initiated Consults Requested none History Surgery Operation Date: 11/22/21 16:30 Proposed Procedures p Colonoscopy EGD Dr. Russell Wells, Height/Weight Height: 5 ft 7 in Weight: 61.3 kg Allergies Allergy/AdvReac Type Severity Reaction Status Date / Time No Known Allergies Allergy Unverified 11/20/21 17:26 Medications Home Medications Medication Instructions Recorded Confirmed Last Taken No Known Home Medications 11/20/21 11/20/21 Unknown Active Medications Generic Name Dose Route Start Last Admin Trade Name Freq PRN Reason Stop Dose Admin Acetaminophen 1,000 mg 11/21/21 13:04 11/21/21 13:13 Acetaminophen 500 Mg Tab PO 12/21/21 13:03 1,000 mg Q8H PRN Administration pain, headache, or fever Lactated Ringer's 1,000 mls @ 100 mls/hr 11/20/21 20:46 11/22/21 08:18 Lr IV 12/20/21 20:45 100 mls/hr .Q10H MODESTO Administration Famotidine 20 mg/ Syringe 5 mls @ 2.5 mls/min 11/21/21 09:00 11/22/21 08:18 IV 12/21/21 08:59 2.5 mls/min Q12 MODESTO Administration Past Medical History Medical History (Updated 11/22/21 @ 11:15 by Wilder Henning MD) Encounter for pre-operative examination No significant past medical history Past Family History Family History Brother Ulcerative colitis Father Pancreatitis Denies family history of Colorectal cancer Past Surgical History Surgical History No significant past surgical history Social History Smoking Status: Never smoker Do You Dip or Chew Tobacco: No Hx Alcohol Use: Yes alcohol intake frequency: holidays/special occasions only Hx Substance Use: No Physical Exam Vital Signs Last Vital Signs Temp 36.7 C 11/22/21 07:17 Pulse 79 11/22/21 07:17 Resp 18 11/22/21 07:17 BP 134/74 11/22/21 07:17 Pulse Ox 99 11/22/21 07:17 O2 Del Method 11/22/21 07:17 Testing Laboratory Results 11/22/21 06:23 11/22/21 06:23 Urine Color Yellow 11/20/21 14:35 Urine Appearance Clear (Clear) 11/20/21 14:35 Urine pH 7.5 (4.5-7.5) 11/20/21 14:35 Ur Specific [place] 1.017 (1.000-1.030) 11/20/21 14:35 Urine Protein Negative (Negative) 11/20/21 14:35 Urine Glucose (UA) Negative (Negative) 11/20/21 14:35 Urine Ketones 1+ (Negative) H 11/20/21 14:35 Urine Nitrite Negative (Negative) 11/20/21 14:35 Ur Leukocyte Esterase Negative (Negative) 11/20/21 14:35 Other Testing 11/21/21 KUB HISTORY: Acute generalized abdominal pain monitor for SBO progression COMPARISON: CT abdomen and pelvis 11/20/2021 FINDINGS: No significant small or large bowel distention identified by radiography. There is decreased small bowel distention compared to yesterday's exam. Mild to moderate fecal retention. No renal calculi. No ureteral calculi. No pneumoperitoneum or pneumatosis. No fracture. IMPRESSION: 1. Decreased small bowel distention compared to yesterday's exam. 2. No pneumoperitoneum. 11/20/[address] WITH IV CONTRAST CT DOSE: 261.19 mGy.cm HISTORY: Generalized abdominal pain. TECHNIQUE: Multiaxial CT images of the abdomen and pelvis were performed following the use of intravenous contrast. A dose lowering technique was utilized adhering to the principles of ALARA. COMPARISON STUDY: None. FINDINGS: The lung bases are clear. No pneumoperitoneum. No pneumatosis. No fractures within the visualized osseous structures. The liver, spleen, adrenal glands, pancreas, and kidneys are unremarkable. No retroperitoneal lymphadenopathy. Normal caliber abdominal aorta. The main portal vein is patent. No pelvic free fluid. The bladder is not well-distended but appears unremarkable. The visualized appendix is unremarkable. The tip is partially obscured. Mild thickening at the distal 15 cm of the terminal ileum with areas of mild dilatation measuring up to 2.9 cm and 2 separate strictures. The focal narrowing/stricture at the distal terminal ileum near the ileocecal valve is best seen on image 226. Therefore, this could represent a partial distal small bowel obstruction secondary to a nonspecific terminal ileitis. This may represent an inflammatory bowel disease or infectious process. Questionable thickening at the body of stomach may be due to underdistention. IMPRESSION: 1. Mild thickening at the terminal ileum with areas of both mild dilatation and strictures as described above. Therefore, this could represent a partial distal small bowel obstruction secondary to a nonspecific terminal ileitis. This may represent an inflammatory bowel disease or infectious process. 2. Questionable thickening at the body of stomach may be due to underdistention. 3. The visualized appendix is unremarkable.
[2021-11-22] MEDS ORDERED: POTASSIUM CHLORIDE CRTAB 20 MEQ TABCR PO STA (13:14)
[2021-11-22] MEDS ORDERED: PROPOFOL IV EMULSION 10 MG/ML 20 ML VIAL IV ONE (15:13)
[2021-11-22] MEDS ORDERED: fentaNYL citrate 100 MCG/2 ML VIAL ONE (15:13)
[2021-11-22] MEDS ORDERED: LIDOCAINE 2% MPF LOCAL 5 ML VIAL INFIL ONE (15:13)
[2021-11-22] MEDS ORDERED: ONDANSETRON INJ 2 MG/ML 2 ML VIAL ONE (15:14)
--- NOTE | 2021-11-22 16:11 | GI REPORT ---
Patient Name: Logan Hayes Procedure Date: 11/22/2021 3:31 PM Date of : 1990 Admit Type: Inpatient Age: 31 Gender: Male Attending MD: Art Wells DO Procedure: Colonoscopy Providers: Art Wells DO Referring MD: Cuba Almanza Md Indications: Generalized abdominal pain, Abnormal CT of the GI tract Medicines: Monitored Anesthesia Care Complications: No immediate complications. Estimated Blood Loss: Estimated blood loss: none. Procedure: Pre-Anesthesia Assessment: - Prior to the procedure, a History and Physical was performed, and patient medications and allergies were reviewed. The patient's tolerance of previous anesthesia was also reviewed. The risks and benefits of the procedure and the sedation options and risks were discussed with the patient. All questions were answered, and informed consent was obtained. Prior Anticoagulants: The patient has taken no previous anticoagulant or antiplatelet agents. ASA Grade Assessment: II - A patient with mild systemic disease. After reviewing the risks and benefits, the patient was deemed in satisfactory condition to undergo the procedure. After I obtained informed consent, the scope was passed under direct vision. Throughout the procedure, the patient's blood pressure, pulse, and oxygen saturations were monitored continuously. The Colonoscope was introduced through the anus and advanced to the terminal ileum. The colonoscopy was performed without difficulty. The patient tolerated the procedure well. The quality of the bowel preparation was good. The terminal ileum, ileocecal valve, appendiceal orifice, and rectum were photographed. Findings: The perianal and digital rectal examinations were normal. The terminal ileum appeared normal. Biopsies were taken with a cold forceps for histology. Non-bleeding internal hemorrhoids were found during retroflexion. The hemorrhoids were small. Impression: - The examined portion of the ileum was normal. Biopsied. - Non-bleeding internal hemorrhoids. Recommendation: - Resume previous diet. - Continue present medications. - Await pathology results. - Repeat colonoscopy for surveillance based on pathology results. Art Wells DO 11/22/2021 4:11:20 PM This report has been signed electronically. Note Initiated On: 11/22/2021 3:31 PM Number of Addenda: 0 I attest to the content of the Intraoperative Record and orders documented therein, exceptions below {[id number]}
--- NOTE | 2021-11-22 16:13 | GI REPORT ---
Patient Name: Logan Hayes Procedure Date: 11/22/2021 3:33 PM Date of : 1990 Admit Type: Inpatient Age: 31 Gender: Male Attending MD: Art Wells DO Procedure: Upper GI endoscopy Providers: Art Wells DO Referring MD: Cuba Almanza MD Indications: Generalized abdominal pain, Abnormal CT of the GI tract Medicines: Monitored Anesthesia Care Complications: No immediate complications. Estimated Blood Loss: Estimated blood loss: none. Procedure: Pre-Anesthesia Assessment: - Prior to the procedure, a History and Physical was performed, and patient medications and allergies were reviewed. The patient's tolerance of previous anesthesia was also reviewed. The risks and benefits of the procedure and the sedation options and risks were discussed with the patient. All questions were answered, and informed consent was obtained. Prior Anticoagulants: The patient has taken no previous anticoagulant or antiplatelet agents. ASA Grade Assessment: II - A patient with mild systemic disease. After reviewing the risks and benefits, the patient was deemed in satisfactory condition to undergo the procedure. After obtaining informed consent, the endoscope was passed under direct vision. Throughout the procedure, the patient's blood pressure, pulse, and oxygen saturations were monitored continuously. The Endoscope was introduced through the mouth, and advanced to the second part of duodenum. The upper GI endoscopy was accomplished without difficulty. The patient tolerated the procedure well. Findings: The examined esophagus was normal. Localized mild inflammation characterized by erythema was found in the gastric antrum. Biopsies were taken with a cold forceps for histology. The examined duodenum was normal. Impression: - Normal esophagus. - Gastritis. Biopsied. - Normal examined duodenum. Recommendation: - Resume previous diet. - Continue present medications. - Await pathology results. - Return to primary care physician as previously scheduled. Art Wells DO 11/22/2021 4:13:06 PM This report has been signed electronically. Note Initiated On: 11/22/2021 3:33 PM Number of Addenda: 0 I attest to the content of the Intraoperative Record and orders documented therein, exceptions below {[id number]}
--- NOTE | 2021-11-22 16:15 | Discharge Summary ---
Date of Service November 22, 2021 Admission HPI Per Admitting Provider Logan Hayes is a previous healthy 31-year-old male is presenting today as a previously healthy 31-year-old male who presented thia afternoon with abdominal pain. 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 He ate a spicy meal from [employer] and notes this significantly worsened his pain. Pain is in the central/upper abdomen and does not radiate anywhere, is worse with movement and better with lying still. Has not been nauseous or vomiting with the pain, and has had 2 bowel movements which were normal for him, nonbloody and nonpainful. He has not had any fever or chills. No one else at home is feeling sick. He denies tobacco, alcohol, or drug use. No new medications or supplements been started and he is not taking any medications. No recent trauma to the abdomen and no history of abdominal surgeries. He drinks socially, maybe 1 or 2 times a month but has not had any alcohol in the past week or so. He d enies a personal history of GI issues, but does have a brother who was diagnosed with colitis in the past 10 years and he believes his father has had pancreatitis, but denies any other family history of GI disorders or diseases. Since receiving medication in our ED, his pain has resolved. Upon presentation his VS are wnl and stable. Labs largely unremarkable, his potassium is just slightly low at 3.4, lipase is 132. CT of the abdomen/pelvis shows mild thickening of the terminal ileum with areas of both dilatation strictures possibly representing partial distal SBO secondary to nonspecific te rminal ileitis or possible IBD. Principal Diagnosis 1. Abdominal pain 2. Gastritis Discharge Exam GENERAL: 31 yo wd/wn young healthy WM. NAD. LUNGS: Clear to auscultation bilaterally. CARDIOVASCULAR: Regular rate and rhythm. ABDOMEN: Soft, non-tender and non-distended. BS normoactive x 4 quad. EXTREMITIES: No edema. Non-tender. Peripheral pulses +2/4. NEUROLOGIC: A&O x3. PSYCHIATRIC: Cooperative. Appropriate mood and affect. SKIN: Warm, dry, intact. No rashes or lesions. Discharge Data Allergies Allergy/AdvReac Type Severity Reaction Status Date / Time No Known Allergies Allergy Unverified 11/20/21 17:26 Consultations 11/20/21 16:36 ED Decision to Admit Stat 11/20/21 20:46 Consult Gastroenterology Routine Procedures Performed Operation Date: 11/22/21 16:30 EGD/colonoscopy with Case Ordered Studies Abdomen/Pelvis CT 11/20/21 14:[address] WITH IV CONTRAST CT DOSE: 261.19 mGy.cm HISTORY: Generalized abdominal pain. TECHNIQUE: Multiaxial CT images of the abdomen and pelvis were performed following the use of intravenous contrast. A dose lowering technique was utilized adhering to the principles of ALARA. COMPARISON STUDY: None. FINDINGS: The lung bases are clear. No pneumoperitoneum. No pneumatosis. No fractures within the visualized osseous structures. The liver, spleen, adrenal glands, pancreas, and kidneys are unremarkable. No retroperitoneal lymphadenopathy. Normal caliber abdominal aorta. The main portal vein is patent. No pelvic free fluid. The bladder is not well-distended but appears unremarkable. The visualized appendix is unremarkable. The tip is partially obscured. Mild thickening at the distal 15 cm of the terminal ileum with areas of mild dilatation measuring up to 2.9 cm and 2 separate strictures. The focal n arrowing/stricture at the distal terminal ileum near the ileocecal valve is best seen on image 226. Therefore, this could represent a partial distal small bowel obstruction secondary to a nonspecific terminal ileitis. This may represent an inflammatory bowel disease or infectious process. Questionable thickening at the body of stomach may be due to underdistention. IMPRESSION: 1. Mild thickening at the terminal ileum with areas of both mild dilatation and strictures as described above. Therefore, this could represent a partial distal small bowel obstruction secondary to a nonspecific terminal ileitis. This may represent an inflammatory bowel disease or infectious process. 2. Questionable thickening at the body of stomach may be due to underdistention. 3. The visualized appendix is unremarkable. ACT 112: Negative or not required by law. Electronically signed by: Gordy Roberson M.D. 11/20/2021 3:43 PM KUB X-Ray 11/21/21 08:00 KUB HISTORY: Acute generalized abdominal pain monitor for SBO progression COMPARISON: CT abdomen and pelvis 11/20/2021 FINDINGS: No significant small or large bowel distention identified by radiography. There is decreased small bowel distention compared to yesterday's exam. Mild to moderate fecal retention. No renal calculi. No ureteral calculi. No pneumoperitoneum or pneumatosis. No fracture. IMPRESSION: 1. Decreased small bowel distention compared to yesterday's exam. 2. No pneumoperitoneum. ACT 112: Negative or not required by law. The above report was generated using voice recognition software. It may contain grammatical, syntax or spelling errors. Electronically signed by: Carlos Rios M.D. 11/21/2021 9:36 AM Hospital Course (1) Bowel disease, inflammatory: Suspected possible underlying cause, acute onset of pain following [employer] prior to admit as he thought mariza ricks was hunger pains Brother with colitis, no prior known personal hx IBD CTAP on admit with mild thickening at terminal ileum w/ areas of mild dilatation and strictures. Could represent partial distal SBO secondary to nonspec terminal ileitis. May rep inflammatory bowel disease or infectious process Of note, does show some questionable thickening at body of stomach, may be due to underdistention WBC wnl on admit, no fevers (did report URI symptoms last week however). No abx for now Supportive care for now --> IVF/pain control/antiemetics prn KUB with improvement, patient with BS throughout on exam Checking biofire stool GI consulted - s/p egd and colonoscopy, per Case findings c/w gastritis, no evidence of crohn's, biopsies taken. GI recommends outpatient f/u and Protonix 40mg daily. (2) Small bowel obstruction: CT of the abdomen and pelvis shows inflammation of the terminal ileum with mild dilatation and strictures which may possibly represent distal SBO, however patient has had 2 normal BMs today, without nausea or vomiting. KUB this morning with decreased SBO distention, no pneumo. Mild-moderate fecal retenion and patient reported after BM earlier he does feel like he could have another shortly. above, per GI ok for some clears today, continue IVF- Did discuss with patient to alert/stop if any abd pain No abd pain, passing stool, no clinical evidence of obstruction Plan EGD/[place] with findings of gastritis. Advise pcp follow up and GI follow up in 2 weeks. Rx for Protonix has been sent to preferred pharmacy. Plan has been d/w Dr. Cuba Almanza who has also seen and evaluated this patient prior to discharge and agrees with aforementioned. Total Time Total Time Spent Total Time Spent (In Minutes): >30 minutes Discharge Plan Discharge Items Patient Disposition: Home - Self-Care Reason For Visit: ABDOMINAL PAIN Discharge Diagnosis: abdominal pain inflammation in portion of small bowel Activity: Resume your previous activity Non-emergency contact: Primary Care Provider and [employer] Call non-emergency contact if: you have any medication questions, your symptoms worsen, your pain is concerning for you and you have a fever Follow-up/Referrals: Luca Velasco DO [Primary Care Provider] - 11/27/21 10:15 am Diet: Low Fiber Addtl Attending Provider Instructions: You were hospitalized due to abdominal pain after having demonstrated findings of inflammation in the last portion of your small intestine which connects to your colon. These findings are concerning for inflammatory bowel disease such as Crohn's disease. However, cannot be confirmed without a diagnosis. Due to your s ymptoms and findings on imaging, you were taken for an upper and lower endoscopy and biopsies were taken to determine the exact cause. These biopsies will take about 2 days to get back. Gastroenterology will be in touch with you to follow up on the biopsy results. Findings of your scope revealed inflammation in your stomach. A prescription for Protonix 40mg daily has been sent to your pharmacy. Take this first thing in the morning 30 minutes before eating/drinking. For now, would follow a low residue (low fiber) diet and maintain adequate hydration by drinking plenty of water/powerade/gatorade, etc. You can use Tylenol and/or Motrin as needed for abdominal discomfort. Follow up with your primary care provider in 1 week as well as gastroenterology as directed. If you have any questions following your discharge, please call the nonemergency number listed on your paperwork. In the event of a medical emergency, call 911. Pending Studies at Discharge: Yes Studies:: biopsies Stand-Alone Forms: My CDC Software, Smoking Cessation Medications and DC Order Prescriptions: New pantoprazole [Protonix] 40 mg tablet,delayed release (DR/EC) 40 mg PO DAILY Qty: 30 0RF Discharge Orders: Discharge Order (Routine); Ordered 11/22/21 Ordered By: Rae Kerr Admission Data Admit Date/Time: 11/21/21 10:42 Attending Provider: Almanza,Cuba J. Admit Provider: Luca Frances Primary Care Provider: Luca Velasco Other Providers: uLca Frances ; Ewelina Summers Other Interventions: Discharge Summary Assessment (RN) Last Done: 11/22/21 17:12 Supervising Physician Co-Signing Physician Notes I supervised Rae Kerr PA-C on the care of this patient. I interviewed and examined the patient independently of her. The plan is as written in her note except for any following changes/exceptions: None 31yo M w/ no major PMH admitted for abdominal pain. Concern for IBD, but EGD shows only gastritis. Doing well overall today. No more pain. Will follow up with PCP and GI on biopsy results. Coding Level of Care Code D/C DAY MANAGEMENT >30 MINS Diagnoses Bowel disease, inflammatory K52.9 Small bowel obstruction K56.609
--- NOTE | 2021-11-22 16:37 | Anesthesiology Progress Note ---
Date of Service November 22, 2021 Anesthesia Post Procedure Vital Signs Vital Signs: Temp Pulse Resp BP Pulse Ox O2 Del Method 11/22/21 16:35 64 16 129/90 100 Room Air 11/22/21 16:20 69 16 117/88 100 Room Air 11/22/21 16:05 97.7 F 66 12 102/55 L 97 Room Air 11/22/21 14:45 98.4 F 69 18 113/73 98 Room Air 11/22/21 14:47 76 20 134/74 100 Room Air 11/22/21 07:17 98.1 F 79 18 134/74 99 Room Air 11/21/21 20:47 98.1 F 83 16 142/88 H 100 Room Air
== END 2021-11-22 17:45 | disposition home or self-care (01) ==
LOC: ED 12:58 → 3E 12:58 → SUATTDRO 18:04 → 3E 20:21
DX: K52.3 Indeterminate colitis; R93.3 Abnormal findings on diagnostic imaging of other parts of digestive tract; K64.8 Other hemorrhoids; K29.70 Gastritis, unspecified, without bleeding; K56.609 Unspecified intestinal obstruction, unspecified as to partial versus complete obstruction; R10.9 Unspecified abdominal pain